=== PATIENT | male | born 1970 | race Two or more races ===

== ENCOUNTER 2020-01-13 04:25 | Emergency (ER) | payer OTHER ==
[~2020-01-13] VITALS: Ht 170.2 cm; Wt 81.6 kg
--- NOTE | 2020-01-13 04:39 | NUR ---
[facility] & [employer] FOR SI. NOTED W/ SCRATCH DIOR AROUND HIS NECK FOR HE TRIED TO PUT A ROPE AROUND HIS NECK AND CHOCK HIMSELF. PT WAS SEEN AND ASSESSED BY DR WILLIS. PT WAS ASSISTED TO BED 6. WAS PLACED ON A HOSPITAL GOWN AND ALL THE BELONGINGS WERE PICKED UP AND TRANSFERRED TO THE SAFE, PT REMAINED ON CLOSE SUPERVISION FOR SAFETY. WILL CONT TO MONITOR ,
[2020-01-13 04:51] LABS: BASOPHILS % (AUTO) 0.5 % (0.0-2.0); EOSINOPHILS % (AUTO) 4.1 % (0.0-6.0); HEMATOCRIT 46 % (39-51); HEMOGLOBIN 15.8 g/dL (13.5-17.5); LYMPHOCYTES # (AUTO) 1.6 /CMM (0.8-4.8); LYMPHOCYTES % (AUTO) 21.1 % (20.0-44.0); MEAN CORPUSCULAR HGB CONC 34 g/dl (31.0-36.0); MEAN CORPUSCULAR VOLUME 91 fL (80-96); MONOCYTES # (AUTO) 0.6 /CMM (0.1-1.30); MONOCYTES % (AUTO) 7.3 % (2.0-12.0); NEUTROPHILS # (AUTO) 5.1 /CMM (1.8-8.9); PLATELET COUNT (AUTO) 249 /CMM (150-450); RED BLOOD CELL COUNT(AUTO) 5.05 MIL/uL (4.5-6.0); WHITE BLOOD COUNT (AUTO) 7.7 K/uL (4.3-11.0)
[2020-01-13 05:08] LABS: CALCIUM, SERUM 8.3 mg/dL (8.5-10.1); CREATININE 1.1 mg/dL (0.6-1.3); POTASSIUM 3.9 mmol/L (3.5-5.1)
[2020-01-13 05:14] LABS: BILIRUBIN,DIRECT 0.1 mg/dL (0.0-0.2); BILIRUBIN,TOTAL 0.4 mg/dL (0.2-1.0); SALICYLATE 2.5 mg/dL (2.8-20.0); TOTAL PROTEIN, SERUM 7.4 g/dL (6.4-8.2)
--- NOTE | 2020-01-13 05:45 | NUR ---
PT UNABLE TO PROVIDE URINE AT THIS TIME. MADE AWARE.
--- NOTE | 2020-01-13 07:32 | NUR ---
ASSUME PT CARE. AWAKE, VERBALLY RESPONSIVE. WAS OFFERED BREAKFAST TRAY BUT REFUSED. STILL REFUSING TO PROVIDE URINE SAMPLE AT THIS TIME. SITTER AT BEDSIDE. WILL CONTINE TO MONITOR.
--- NOTE | 2020-01-13 08:11 | NUR ---
CALLED [facility] [employer] FOR EVAL. WILL BE HERE WITHIN AN HOUR.
[2020-01-13 10:42] LABS: APPEARANCE,URINE Clear (CLEAR); BILIRUBIN,URINE Negative (NEGATIVE); BLOOD, URINE Negative Ery/uL (NEGATIVE); COLOR,URINE Yellow (YELLOW); KETONES,URINE 15 (NEGATIVE); LEUKOCYTE ESTERASE ,URINE Negative (NEGATIVE); NITRITE, URINE Negative (NEGATIVE); PROTEIN,URINE Negative (NEGATIVE); UGLUCOSE Negative (NEGATIVE); UROBILINOGEN,URINE 0.2 EU/dL (0.2)
[2020-01-13 10:55] LABS: BACTERIA,URINE Few /HPF (None Seen); SQUAMOUS EPITHELIAL CELL,UR Few /HPF (None Seen); WBC,URINE 0-2 /HPF (0-3)
--- NOTE | 2020-01-13 12:13 | NUR ---
[employer] AT BEDSIDE FOR PSYCH EVAL.
--- NOTE | 2020-01-13 12:52 | NUR ---
MEDICALLY AND PSYCH CLEARED. DISCHARGE HOME IN STABLE CONDITION.
[2020-01-13 13:09] VITALS: BP 122/74
== END 2020-01-13 13:09 | disposition home or self-care (01) ==
LOC: ER 04:30
DX: R45.851 Suicidal ideations (principal)
CPT/HCPCS: 36415; 80048; 80076; 80305; 80307; 80329; 81001; 85025; 99285; G0480; 81000-TC